=== PATIENT | male | born 1995 | race Two or more races ===

== ENCOUNTER 2019-08-28 18:32 | Emergency (ER) | payer OTHER ==
[2019-08-28 18:55] VITALS: BP 115/62; PULSE 69; BMI 22.9
[2019-08-28] MEDS ORDERED: IBUPROFEN 600 MG TABLET (FP) PO ONE ×2 (19:49→19:51)
[2019-08-28] MEDS ORDERED: ALBUTEROL SO4 2.5/IPRATROPIUM 0.5 INH SOL 3 ML VIAL.NEB. NEB ONE ×2 (19:49→19:51)
--- NOTE | 2019-08-28 20:03 | PDOC ---
Documentation entered by Wilber Ireland SCRIBE, acting as scribe for Janki Mejia MD. Janki Mejia MD: This documentation has been prepared by the Beka marte Andrys, SCRIBE, under my direction and personally reviewed by me in its entirety. I confirm that the documentation accurately reflects all work, treatment, procedures, and medical decision making performed by me. History of Present Illness - General Chief Complaint: Shortness of Breath Stated Complaint: LEFT SIDE PAIN, SOB Time Seen by Provider: 08/28/19 18:36 History Source: Patient Exam Limitations: No Limitations - History of Present Illness Initial Comments: 08/28/19 19:49 The patient is a 24 year old male, chronic smoker, who presents to the ED with shortness of breath and chest pain since earlier today. Patient reports a sudden onset of shortness of breath 5 hours prior to arrival to the ED. Patient reports chest pain that feels like needles when taking a deep inspiration. He states he cant take a full breath secondary to chest pain. Denies edema to the extremities. Denies loss of appetite. Denies fever or chills. Denies any other symptoms. Social hx: Patient smokes Juul everyday for the past 2 years. Family hx: Patient has a family history of diabetes. Past History - Past Medical History Allergies/Adverse Reactions: Allergies Allergy/AdvReac Type Severity Reaction Status Date / Time No Known Allergies Allergy Verified 08/28/19 18:34 Home Medications: Ambulatory Orders NK [No Known Home Medication] 08/28/19 COPD: No - Psycho Social/Smoking Cessation Hx Smoking History: Current every day smoker Have you smoked in the past 12 months: No Number of Cigarettes Smoked Daily: 0 Information on smoking cessation initiated: Yes Hx Alcohol Use: No Drug/Substance Use Hx: No Review of Systems - Review of Systems Able to Perform ROS?: Yes Comments:: 08/28/19 19:50 CONSTITUTIONAL: Absent: fever, chills, diaphoresis, generalized weakness, malaise, loss of appetite HEENT: Absent: rhinorrhea, nasal congestion, throat pain, throat swelling, difficulty swallowing, mouth swelling, ear pain, eye pain, visual Changes CARDIOVASCULAR: + chest pain Absent: syncope, palpitations, irregular heart rate, lightheadedness, peripheral edema RESPIRATORY: + shortness of breath Absent: cough, wheezing, stridor, hemoptysis GASTROINTESTINAL: Absent: abdominal pain, abdominal distension, nausea, vomiting, diarrhea, constipation, melena, hematochezia GENITOURINARY: Absent: dysuria, frequency, urgency, hesitancy, hematuria, flank pain, genital pain MUSCULOSKELETAL: Absent: myalgia, arthralgia, joint swelling SKIN: Absent: rash, itching, pallor HEMATOLOGIC/IMMUNOLOGIC: Absent: easy bleeding, easy bruising, lymphadenopathy, frequent infections ENDOCRINE: Absent: unexplained weight gain, unexplained weight loss, heat intolerance, cold intolerance NEUROLOGIC: Absent: headache, focal weakness or paresthesias, dizziness, unsteady gait, seizure, mental status changes, bladder or bowel incontinence PSYCHIATRIC: Absent: anxiety, depression, suicidal or homicidal ideation, hallucinations. All Other Systems: Reviewed and Negative *Physical Exam - Vital Signs Last Vital Signs Temp Pulse Resp BP Pulse Ox 69 20 115/62 99 08/28/19 18:33 08/28/19 18:33 08/28/19 18:33 08/28/19 18:33 - Physical Exam Comments: 08/28/19 19:50 GENERAL: Well developed, well nourished. Awake and alert. No acute distress. HEENT: Normocephalic, atraumatic. PERRLA, EOMI. No conjunctival pallor. Sclera are non- icteric. Moist mucous membranes. Oropharynx is clear. NECK: Supple. Full ROM. No JVD. Carotid pulses 2+ and symmetric, without bruits. No thyromegaly. No lymphadenopathy. CARDIOVASCULAR: Regular rate and rhythm. No murmurs, rubs, or gallops. Distal pulses are 2+ and symmetric. PULMONARY: No evidence of respiratory distress. Lungs clear to auscultation bilaterally. No wheezing, rales or rhonchi. ABDOMINAL: Soft. Non-tender. Non-distended. No rebound or guarding. No organomegaly. Normoactive bowel sounds. MUSCULOSKELETAL Normal range of motion at all joints. No bony deformities or tenderness. No CVA tenderness. EXTREMITIES: No cyanosis. No clubbing. No edema. No calf tenderness. SKIN: Warm and dry. Normal capillary refill. No rashes. No jaundice. NEUROLOGICAL: Alert, awake, appropriate. Cranial nerves 2-12 intact. No deficits to light touch and temperature in face, upper extremities and lower extremities. No motor deficits in the in face, upper extremities and lower extremities. Normoreflexic in the upper and lower extremities. Normal speech. Toes are down- going bilaterally. Gait is normal without ataxia. PSYCHIATRIC: Cooperative. Good eye contact. Appropriate mood and affect. 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 Normal vital signs COMPARISON: No available comparison. FINDINGS: Medical Devices: None. Lung Parenchyma: Subcentimeter calcifications noted within the right hilum and question left hilum; these may be related to prior granulomatous disease No pulmonary edema. Mediastinum: Unremarkable Pleura: No fluid. Cardiac silhouette: No cardiomegaly. Chest Wall: No displaced acute fractures. Visualized upper abdomen: Unremarkable. Pneumothorax: None. IMPRESSION: No evidence of acute cardiopulmonary process. Subcentimeter calcifications noted within the right hilum and question left hilum; these may be related to prior granulomatous disease. If there is concern for alternative process consider further evaluation with CT of the chest. Discharge - Discharge Information Problems reviewed: Yes Clinical Impression/Diagnosis: Pleuritic chest pain Condition: Good Disposition: HOME - Admission No - Follow up/Referral - Patient Discharge Instructions Patient Printed Discharge Instructions: Tips to Help You Stop Smoking, All Forms of Smoking Are Bad for You - Post Discharge Activity
--- NOTE | 2019-08-29 10:15 | EKG ---
Test Reason : Blood Pressure : / mmHG Vent. Rate : 064 BPM Atrial Rate : 064 BPM P-R Int : 126 ms QRS Dur : 104 ms QT Int : 394 ms P-R-T Axes : 010 066 050 degrees QTc Int : 406 ms NORMAL SINUS RHYTHM RSR' OR QR PATTERN IN V1 SUGGESTS RIGHT VENTRICULAR CONDUCTION DELAY BORDERLINE ECG NO PREVIOUS ECGS AVAILABLE Confirmed by JOSSELIN HERNÁNDEZ MD ([id number]) on 08/29/2019 10:15:01 AM Referred By: JOHNNY Confirmed By:JOSSELIN HERNÁNDEZ MD
== END 2019-08-28 20:05 | disposition home or self-care (01) ==
LOC: FER 18:32
PROC: 3E0F7GC Introduction of Other Therapeutic Substance into Respiratory Tract, Via Natural or Artificial Opening (ICD-10-PCS; principal; 2019-08-28)
DX: R07.89 Other chest pain (principal); F17.210 Nicotine dependence, cigarettes, uncomplicated
CPT/HCPCS: 71046-TC-FY; 93005; 99282-25